=== PATIENT | male | born 1990 | race Caucasian/White ===

== ENCOUNTER 2018-06-26 12:59 | Emergency (ER) | payer OTHER ==
[~2018-06-26] VITALS: Ht 172.7 cm; Wt 79.8 kg
[2018-06-26 13:03] VITALS: Ht 172.7 cm; Wt 79.8 kg
[2018-06-26 16:04] VITALS: BP 132/74
== END 2018-06-26 16:04 | disposition home or self-care (01) ==
LOC: ED 12:59
DX: M54.42 Lumbago with sciatica, left side (principal); G89.29 Other chronic pain
CPT/HCPCS: Q0162